=== PATIENT | female | born 1985 | race African-American/Black ===

== ENCOUNTER 2022-03-01 10:10 | Emergency (ER) | payer OTHER, SELFPAY ==
[2022-03-01] VITALS (18 sets, daily range): BP systolic 110–133; BP diastolic 72–84; PULSE 86–108; RESP 18; TEMP 36.6; O2SAT 98–100; BMI 29.5
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
[2022-03-01] MEDS: KETOROLAC 30 MG/ML VIAL 15 MG IM (13:45)
[2022-03-01] MEDS: LIDOCAINE PATCH 1 EACH ADH..PATCH TOP (13:46)
[2022-03-01] MEDS: methocarbamoL 500 MG TABLET PO (13:46)
[2022-03-01] MEDS: ACETAMINOPHEN 325 MG TABLET 650 MG PO (13:46)
== END 2022-03-01 14:25 | disposition home or self-care (01) ==
PROVIDERS: Emergency Provider Nurse Practitioner Critical Care Medicine
DX: S29.011A Strain of muscle and tendon of front wall of thorax, initial encounter (principal); M79.644 Pain in right finger(s); V89.2XXA Person injured in unspecified motor-vehicle accident, traffic, initial encounter
CPT/HCPCS: 73130; 76700; 81003; 81025; 96372; 99283; 99284; J1885